=== PATIENT | male | born 1965 | race Caucasian/White ===

== ENCOUNTER 2024-08-11 20:35 | Inpatient (IN) | payer MEDICARE, MEDICAID ==
[2024-08-11 22:00] VITALS: BP 113/84; TEMP 97.6; O2SAT 96
[2024-08-11] MEDS ORDERED: ALBUTEROL FS 2.5 MG/0.5 ML VIAL.NEB NEB PRN (22:00)
[2024-08-11] MEDS ORDERED: hydrALAZINE HCL IV 20 MG VIAL IV PRN (22:00)
[2024-08-11] MEDS ORDERED: ONDANSETRON HCL/PF 4 MG/2 ML VIAL IVP PRN (22:00)
[2024-08-11 22:38] LABS: BASOPHILS # (AUTO) 0.1 K/uL (0.0-0.2); BASOPHILS % (AUTO) 0.6 % (0.0-2.0); EOSINOPHILS # (AUTO) 0.5 K/uL (0.0-0.7); EOSINOPHILS % (AUTO) 5.3 % (0.0-6.0); HEMATOCRIT 38 % (39-51); HEMOGLOBIN 12.7 g/dL (13.5-17.5); LYMPHOCYTES # (AUTO) 1.6 K/uL (0.8-4.8); LYMPHOCYTES % (AUTO) 16.9 % (20.0-44.0); MEAN CORPUSCULAR HEMOGLOBIN 33 PG (26.0-33.0); MEAN CORPUSCULAR HGB CONC 33 g/dl (31.0-36.0); MEAN CORPUSCULAR VOLUME 99 fL (80-96); MONOCYTES % (AUTO) 10.1 % (2.0-12.0); NEUTROPHILS # (AUTO) 6.4 K/uL (1.8-8.9); NEUTROPHILS % (AUTO) 67.1 % (43.0-81.0); PLATELET COUNT (AUTO) 224 K/uL (150-450); RED BLOOD CELL COUNT(AUTO) 3.86 MIL/uL (4.5-6.0); RED CELL DISTRIBUTION WIDTH 16.5 % (11.5-15.0); WHITE BLOOD COUNT (AUTO) 9.6 K/uL (4.3-11.0)
[2024-08-11] MEDS ORDERED: LEVE250T2 GT (22:46)
[2024-08-11] MEDS ORDERED: THIA50TA10 GT (22:46)
[2024-08-11] MEDS ORDERED: FAMO-131 PO (22:46)
[2024-08-11] MEDS ORDERED: NA P133E RC (22:46)
[2024-08-11] MEDS ORDERED: ONDA4TAB5 GT (22:46)
[2024-08-11] MEDS ORDERED: BACL5TAB GT (22:46)
[2024-08-11] MEDS ORDERED: CARV12.5 PO (22:46)
[2024-08-11] MEDS ORDERED: AMAN50SY GT (22:46)
[2024-08-11] MEDS ORDERED: ATOR40TA PO (22:46)
[2024-08-11] MEDS ORDERED: POLY17PO4 GT (22:46)
[2024-08-11] MEDS ORDERED: RIVA10TA GT (22:46)
[2024-08-11] MEDS ORDERED: MAGN400O21 GT (22:46)
[2024-08-11] MEDS ORDERED: ACET325C7 RC (22:46)
[2024-08-11] MEDS ORDERED: FURO-145 GT (22:46)
[2024-08-11 22:50] LABS: ALBUMIN 2.6 g/dL (3.4-5.0); BILIRUBIN,TOTAL 0.8 mg/dL (0.2-1.0); CALCIUM, SERUM 9.2 mg/dL (8.5-10.1); CREATININE 0.7 mg/dL (0.6-1.3); POTASSIUM 4.1 mmol/L (3.5-5.1); TOTAL PROTEIN, SERUM 7.5 g/dL (6.4-8.2)
[2024-08-11] MEDS ORDERED: ACETAMINOPHEN 650 MG/SUPP.RECT RC PRN (23:45)
[2024-08-12] VITALS: BP 113/84; TEMP 98.1; O2SAT 95
[2024-08-12] MEDS ORDERED: NA PHOS,M-B/NA PHOS,DI-BA 1 EA ENEMA RC PRN
[2024-08-12] MEDS ORDERED: IPRATROPIUM/ALBUTEROL INHALER IH SCH
[2024-08-12] MEDS ORDERED: MAGNESIUM HYDROXIDE 30 ML UDC GT PRN
[2024-08-12] MEDS: IPRATROPIUM NEB FS 0.5 MG/2.5 ML AMPUL.NEB NEB SCH (01:32)
[2024-08-12] MEDS: ALBUTEROL FS 2.5 MG/3 ML VIAL.NEB NEB SCH (01:33)
[2024-08-12 04:00] VITALS: BP 150/87; TEMP 97.7; O2SAT 96
[2024-08-12 05:36] LABS: ABG BASE EXCESS 5.1 mmol/L (-2.0-3.0); ABG PCO2 38.3 mmHg (35.0-48.0); ABG PH 7.491 (7.350-7.450); ABG PO2 92.7 mmHg (83.0-108.0); ABG TOTAL HEMOGLOBIN 13.4 G/dL (13.5-17.5); COHb 0.8 % (0.5-1.5); MetHb 0.2 % (0.0-1.5); PEEP,BG 5 cm H2O; SITE, ABG LEFT RADIAL; VT, ABG 500 mL
[2024-08-12 08:00] VITALS: BP 123/89; TEMP 98.8; O2SAT 100
[2024-08-12] MEDS: LEVETIRACETAM (250 MG) 250 MG TABLET GT SCH (08:23)
[2024-08-12] MEDS: DOCUSATE SODIUM LIQ 100 MG/10 ML UDC PO SCH (08:23)
[2024-08-12] MEDS: THIAMINE HCL 100 MG TABLET GT SCH (08:23)
[2024-08-12] MEDS: POLYETHYLENE GLYCOL 3350 17 GM POWD.PACK GT SCH (08:23)
[2024-08-12] MEDS: FAMOTIDINE (20 MG) 20 MG TABLET PO SCH (08:23)
[2024-08-12] MEDS: FUROSEMIDE 20 MG TABLET GT SCH (08:24)
[2024-08-12] MEDS: CARVEDILOL 12.5 MG TABLET PO SCH (08:45)
[2024-08-12] MEDS ORDERED: POLYETHYLENE GLYCOL 3350 17 GM POWD.PACK PO SCH (09:00)
[2024-08-12] MEDS ORDERED: AMANTADINE SUSP 50 MG/5 ML UDC GT SCH (09:00)
[2024-08-12] MEDS ORDERED: Z GUARD REMEDY 4 OZ OINT TP PRN (09:00)
[2024-08-12] MEDS: Z GUARD REMEDY 4 OZ OINT TP SCH (09:46)
[2024-08-12 10:24] LABS: MAGNESIUM 2.1 mg/dL (1.8-2.4); PHOSPHORUS 4.3 mg/dL (2.5-4.9)
[2024-08-12] MEDS: JEVITY 1.2 CAL 1,000 ML BOTTLE GT PRN (11:48)
[2024-08-12 12:00] VITALS: BP 118/76; TEMP 98.2; O2SAT 97
[2024-08-12 16:00] VITALS: BP 108/64; TEMP 99; O2SAT 97
[2024-08-12] MEDS: ATORVASTATIN 40 MG TABLET PO SCH (17:47)
[2024-08-12] MEDS: RIVAROXABAN 10 MG TABLET PO SCH (17:48)
[2024-08-12 20:00] VITALS: BP 108/73; TEMP 98.4; O2SAT 99
[2024-08-12] MEDS: BACLOFEN (10 MG) 10 MG TABLET GT SCH (21:01)
[2024-08-13] VITALS: BP_SYST 121; BP_SYST 130; BP_DIAS 59; BP_DIAS 94; TEMP 98; O2SAT 99
[2024-08-13 00:37] LABS: BASOPHILS # (AUTO) 0.1 K/uL (0.0-0.2); BASOPHILS % (AUTO) 1.3 % (0.0-2.0); EOSINOPHILS # (AUTO) 0.4 K/uL (0.0-0.7); EOSINOPHILS % (AUTO) 5.1 % (0.0-6.0); HEMATOCRIT 37 % (39-51); HEMOGLOBIN 12.2 g/dL (13.5-17.5); LYMPHOCYTES # (AUTO) 1.5 K/uL (0.8-4.8); LYMPHOCYTES % (AUTO) 17.9 % (20.0-44.0); MEAN CORPUSCULAR HEMOGLOBIN 32 PG (26.0-33.0); MEAN CORPUSCULAR HGB CONC 33 g/dl (31.0-36.0); MEAN CORPUSCULAR VOLUME 98 fL (80-96); MONOCYTES # (AUTO) 0.9 K/uL (0.1-1.30); MONOCYTES % (AUTO) 10.3 % (2.0-12.0); NEUTROPHILS # (AUTO) 5.5 K/uL (1.8-8.9); NEUTROPHILS % (AUTO) 65.4 % (43.0-81.0); PLATELET COUNT (AUTO) 214 K/uL (150-450); RED CELL DISTRIBUTION WIDTH 16.2 % (11.5-15.0); WHITE BLOOD COUNT (AUTO) 8.4 K/uL (4.3-11.0)
[2024-08-13 00:52] LABS: CALCIUM, SERUM 9.1 mg/dL (8.5-10.1); CREATININE 0.7 mg/dL (0.6-1.3); POTASSIUM 3.6 mmol/L (3.5-5.1)
[2024-08-13 00:54] LABS: ALBUMIN 2.6 g/dL (3.4-5.0); BILIRUBIN,TOTAL 0.9 mg/dL (0.2-1.0); TOTAL PROTEIN, SERUM 7.4 g/dL (6.4-8.2)
[2024-08-13 04:00] VITALS: BP 118/81; TEMP 97.9; O2SAT 98
[2024-08-13 08:00] VITALS: BP 106/77; TEMP 97.9; O2SAT 99
[2024-08-13 12:00] VITALS: BP 133/82; TEMP 98.9; O2SAT 97
[2024-08-13 16:00] VITALS: BP 120/83; TEMP 98.5; O2SAT 94
[2024-08-13 20:00] VITALS: BP 119/84; TEMP 98.2; O2SAT 95
[2024-08-13 22:22] LABS: BASOPHILS # (AUTO) 0.2 K/uL (0.0-0.2); BASOPHILS % (AUTO) 1.8 % (0.0-2.0); EOSINOPHILS # (AUTO) 0.4 K/uL (0.0-0.7); EOSINOPHILS % (AUTO) 3.3 % (0.0-6.0); HEMATOCRIT 38 % (39-51); HEMOGLOBIN 12.3 g/dL (13.5-17.5); LYMPHOCYTES # (AUTO) 1.3 K/uL (0.8-4.8); LYMPHOCYTES % (AUTO) 11.9 % (20.0-44.0); MEAN CORPUSCULAR HEMOGLOBIN 32 PG (26.0-33.0); MEAN CORPUSCULAR HGB CONC 32 g/dl (31.0-36.0); MEAN CORPUSCULAR VOLUME 98 fL (80-96); MONOCYTES # (AUTO) 0.9 K/uL (0.1-1.30); MONOCYTES % (AUTO) 7.7 % (2.0-12.0); NEUTROPHILS # (AUTO) 8.3 K/uL (1.8-8.9); NEUTROPHILS % (AUTO) 75.3 % (43.0-81.0); PLATELET COUNT (AUTO) 202 K/uL (150-450); RED BLOOD CELL COUNT(AUTO) 3.89 MIL/uL (4.5-6.0); WHITE BLOOD COUNT (AUTO) 11.1 K/uL (4.3-11.0)
[2024-08-13 22:30] LABS: CALCIUM, SERUM 9.1 mg/dL (8.5-10.1); CREATININE 0.8 mg/dL (0.6-1.3); POTASSIUM 3.6 mmol/L (3.5-5.1)
[2024-08-13 22:35] LABS: ALBUMIN 2.6 g/dL (3.4-5.0); BILIRUBIN,TOTAL 0.7 mg/dL (0.2-1.0); TOTAL PROTEIN, SERUM 7.3 g/dL (6.4-8.2)
[2024-08-14] VITALS: BP 118/83; TEMP 98.9; O2SAT 98
[2024-08-14 04:00] VITALS: BP 124/75; TEMP 98; O2SAT 98
[2024-08-14 08:10] VITALS: BP 116/78; TEMP 98; O2SAT 94
[2024-08-14] MEDS: ACETAMINOPHEN 325 MG TABLET PO PRN (10:51)
[2024-08-14 12:05] VITALS: BP 115/80; TEMP 99.1; O2SAT 95
[2024-08-14] MEDS: AMANTADINE SUSP 50 MG/5 ML UDC GT SCH (12:09)
[2024-08-14 15:00] LABS: BASOPHILS # (AUTO) 0.1 K/uL (0.0-0.2); EOSINOPHILS # (AUTO) 0.4 K/uL (0.0-0.7); EOSINOPHILS % (AUTO) 4.1 % (0.0-6.0); HEMATOCRIT 38 % (39-51); HEMOGLOBIN 12.5 g/dL (13.5-17.5); LYMPHOCYTES # (AUTO) 1.7 K/uL (0.8-4.8); LYMPHOCYTES % (AUTO) 17.9 % (20.0-44.0); MEAN CORPUSCULAR HEMOGLOBIN 33 PG (26.0-33.0); MEAN CORPUSCULAR HGB CONC 33 g/dl (31.0-36.0); MEAN CORPUSCULAR VOLUME 99 fL (80-96); MONOCYTES # (AUTO) 0.9 K/uL (0.1-1.30); MONOCYTES % (AUTO) 9.4 % (2.0-12.0); NEUTROPHILS # (AUTO) 6.6 K/uL (1.8-8.9); NEUTROPHILS % (AUTO) 67.6 % (43.0-81.0); PLATELET COUNT (AUTO) 196 K/uL (150-450); RED BLOOD CELL COUNT(AUTO) 3.81 MIL/uL (4.5-6.0); RED CELL DISTRIBUTION WIDTH 16.3 % (11.5-15.0); WHITE BLOOD COUNT (AUTO) 9.7 K/uL (4.3-11.0)
[2024-08-14 15:18] LABS: CALCIUM, SERUM 9.1 mg/dL (8.5-10.1); CREATININE 0.6 mg/dL (0.6-1.3); POTASSIUM 3.6 mmol/L (3.5-5.1)
[2024-08-14 16:00] VITALS: BP 124/79; TEMP 98.8; O2SAT 99
[2024-08-14 20:00] VITALS: BP 112/83; TEMP 97.5; O2SAT 97
[2024-08-14 21:47] LABS: BASOPHILS # (AUTO) 0.1 K/uL (0.0-0.2); BASOPHILS % (AUTO) 1.1 % (0.0-2.0); EOSINOPHILS # (AUTO) 0.4 K/uL (0.0-0.7); EOSINOPHILS % (AUTO) 3.9 % (0.0-6.0); HEMATOCRIT 39 % (39-51); HEMOGLOBIN 12.4 g/dL (13.5-17.5); LYMPHOCYTES # (AUTO) 1.6 K/uL (0.8-4.8); LYMPHOCYTES % (AUTO) 17.4 % (20.0-44.0); MEAN CORPUSCULAR HEMOGLOBIN 32 PG (26.0-33.0); MEAN CORPUSCULAR HGB CONC 32 g/dl (31.0-36.0); MEAN CORPUSCULAR VOLUME 99 fL (80-96); MONOCYTES # (AUTO) 0.7 K/uL (0.1-1.30); MONOCYTES % (AUTO) 7.8 % (2.0-12.0); NEUTROPHILS # (AUTO) 6.6 K/uL (1.8-8.9); NEUTROPHILS % (AUTO) 69.8 % (43.0-81.0); PLATELET COUNT (AUTO) 197 K/uL (150-450); RED BLOOD CELL COUNT(AUTO) 3.91 MIL/uL (4.5-6.0); WHITE BLOOD COUNT (AUTO) 9.4 K/uL (4.3-11.0)
[2024-08-14 21:49] LABS: CALCIUM, SERUM 9.3 mg/dL (8.5-10.1); CREATININE 0.6 mg/dL (0.6-1.3); POTASSIUM 3.7 mmol/L (3.5-5.1)
[2024-08-14 21:56] LABS: ALBUMIN 2.5 g/dL (3.4-5.0); BILIRUBIN,TOTAL 0.7 mg/dL (0.2-1.0); TOTAL PROTEIN, SERUM 7.2 g/dL (6.4-8.2)
[2024-08-15] VITALS (7 sets, daily range): BP systolic 115–138; BP diastolic 57–84; TEMP 97.5–98.8; O2SAT 97–100
[2024-08-15 21:43] LABS: BASOPHILS # (AUTO) 0.1 K/uL (0.0-0.2); BASOPHILS % (AUTO) 1.3 % (0.0-2.0); EOSINOPHILS # (AUTO) 0.5 K/uL (0.0-0.7); EOSINOPHILS % (AUTO) 4.6 % (0.0-6.0); HEMATOCRIT 39 % (39-51); HEMOGLOBIN 12.6 g/dL (13.5-17.5); LYMPHOCYTES # (AUTO) 1.9 K/uL (0.8-4.8); MEAN CORPUSCULAR HEMOGLOBIN 32 PG (26.0-33.0); MEAN CORPUSCULAR HGB CONC 32 g/dl (31.0-36.0); MEAN CORPUSCULAR VOLUME 98 fL (80-96); MONOCYTES # (AUTO) 0.9 K/uL (0.1-1.30); MONOCYTES % (AUTO) 8.6 % (2.0-12.0); NEUTROPHILS # (AUTO) 6.6 K/uL (1.8-8.9); NEUTROPHILS % (AUTO) 66.5 % (43.0-81.0); PLATELET COUNT (AUTO) 202 K/uL (150-450); RED BLOOD CELL COUNT(AUTO) 3.97 MIL/uL (4.5-6.0); RED CELL DISTRIBUTION WIDTH 15.6 % (11.5-15.0); WHITE BLOOD COUNT (AUTO) 9.9 K/uL (4.3-11.0)
[2024-08-15 21:55] LABS: CALCIUM, SERUM 8.9 mg/dL (8.5-10.1); CREATININE 0.7 mg/dL (0.6-1.3); POTASSIUM 4.2 mmol/L (3.5-5.1)
[2024-08-15 22:00] LABS: ALBUMIN 2.5 g/dL (3.4-5.0); BILIRUBIN,TOTAL 0.8 mg/dL (0.2-1.0); TOTAL PROTEIN, SERUM 7.1 g/dL (6.4-8.2)
[2024-08-16] VITALS: BP 124/84; TEMP 98.4; O2SAT 97
[2024-08-16 04:00] VITALS: BP 131/79; TEMP 97.3; O2SAT 100
[2024-08-16 08:00] VITALS: BP 108/73; TEMP 98.4; O2SAT 100
[2024-08-16] MEDS: MORPHINE SULFATE INJ 2 MG/ML DISP.SYRIN IV PRN (10:33)
[2024-08-16 12:00] VITALS: BP 91/74; TEMP 97.8; O2SAT 100
[2024-08-16 16:00] VITALS: BP 105/66; TEMP 97.9; O2SAT 99
[2024-08-16] MEDS: PROSOURCE / PROSTAT (PYXIS) 30 ML UDC GT SCH (16:52)
[2024-08-16 20:00] VITALS: BP 93/65; TEMP 98.1; O2SAT 97
[2024-08-17] VITALS (7 sets, daily range): BP systolic 100–129; BP diastolic 61–88; TEMP 97.3–99.7; O2SAT 97–100
[2024-08-17 00:54] LABS: BASOPHILS # (AUTO) 0.1 K/uL (0.0-0.2); BASOPHILS % (AUTO) 0.6 % (0.0-2.0); EOSINOPHILS # (AUTO) 0.5 K/uL (0.0-0.7); EOSINOPHILS % (AUTO) 4.9 % (0.0-6.0); HEMATOCRIT 38 % (39-51); HEMOGLOBIN 12.3 g/dL (13.5-17.5); LYMPHOCYTES # (AUTO) 1.6 K/uL (0.8-4.8); LYMPHOCYTES % (AUTO) 16.5 % (20.0-44.0); MEAN CORPUSCULAR HEMOGLOBIN 32 PG (26.0-33.0); MEAN CORPUSCULAR HGB CONC 33 g/dl (31.0-36.0); MEAN CORPUSCULAR VOLUME 98 fL (80-96); MONOCYTES # (AUTO) 0.8 K/uL (0.1-1.30); MONOCYTES % (AUTO) 8.4 % (2.0-12.0); NEUTROPHILS # (AUTO) 6.6 K/uL (1.8-8.9); NEUTROPHILS % (AUTO) 69.6 % (43.0-81.0); PLATELET COUNT (AUTO) 203 K/uL (150-450); RED BLOOD CELL COUNT(AUTO) 3.83 MIL/uL (4.5-6.0); RED CELL DISTRIBUTION WIDTH 15.7 % (11.5-15.0); WHITE BLOOD COUNT (AUTO) 9.5 K/uL (4.3-11.0)
[2024-08-17 01:07] LABS: ALBUMIN 2.5 g/dL (3.4-5.0); BILIRUBIN,TOTAL 0.7 mg/dL (0.2-1.0); CREATININE 0.6 mg/dL (0.6-1.3); POTASSIUM 3.7 mmol/L (3.5-5.1); TOTAL PROTEIN, SERUM 7.1 g/dL (6.4-8.2)
[2024-08-17 21:09] LABS: BASOPHILS # (AUTO) 0.1 K/uL (0.0-0.2); BASOPHILS % (AUTO) 0.8 % (0.0-2.0); EOSINOPHILS # (AUTO) 0.4 K/uL (0.0-0.7); EOSINOPHILS % (AUTO) 3.6 % (0.0-6.0); HEMATOCRIT 44 % (39-51); HEMOGLOBIN 14.3 g/dL (13.5-17.5); LYMPHOCYTES # (AUTO) 2.2 K/uL (0.8-4.8); LYMPHOCYTES % (AUTO) 20.7 % (20.0-44.0); MEAN CORPUSCULAR HEMOGLOBIN 33 PG (26.0-33.0); MEAN CORPUSCULAR HGB CONC 33 g/dl (31.0-36.0); MEAN CORPUSCULAR VOLUME 101 fL (80-96); MONOCYTES # (AUTO) 1.5 K/uL (0.1-1.30); NEUTROPHILS # (AUTO) 6.5 K/uL (1.8-8.9); NEUTROPHILS % (AUTO) 60.9 % (43.0-81.0); PLATELET COUNT (AUTO) 178 K/uL (150-450); RED BLOOD CELL COUNT(AUTO) 4.33 MIL/uL (4.5-6.0); RED CELL DISTRIBUTION WIDTH 16.2 % (11.5-15.0); WHITE BLOOD COUNT (AUTO) 10.7 K/uL (4.3-11.0)
[2024-08-17 21:16] LABS: CALCIUM, SERUM 9.2 mg/dL (8.5-10.1); CREATININE 0.7 mg/dL (0.6-1.3); POTASSIUM 4.1 mmol/L (3.5-5.1)
[2024-08-17 21:21] LABS: ALBUMIN 2.7 g/dL (3.4-5.0); BILIRUBIN,TOTAL 0.9 mg/dL (0.2-1.0); TOTAL PROTEIN, SERUM 7.6 g/dL (6.4-8.2)
[2024-08-18] VITALS: BP 125/76; TEMP 98.1; O2SAT 98
[2024-08-18 04:00] VITALS: BP 128/88; TEMP 98; O2SAT 97
[2024-08-18 07:55] LABS: CALCIUM, SERUM 9.4 mg/dL (8.5-10.1); CREATININE 0.6 mg/dL (0.6-1.3); POTASSIUM 3.9 mmol/L (3.5-5.1)
[2024-08-18 08:00] VITALS: BP 139/94; TEMP 97.9; O2SAT 99
[2024-08-18 08:57] LABS: BASOPHILS # (AUTO) 0.1 K/uL (0.0-0.2); BASOPHILS % (AUTO) 0.5 % (0.0-2.0); EOSINOPHILS # (AUTO) 0.3 K/uL (0.0-0.7); HEMATOCRIT 39 % (39-51); HEMOGLOBIN 12.6 g/dL (13.5-17.5); LYMPHOCYTES # (AUTO) 1.8 K/uL (0.8-4.8); LYMPHOCYTES % (AUTO) 16.3 % (20.0-44.0); MEAN CORPUSCULAR HEMOGLOBIN 32 PG (26.0-33.0); MEAN CORPUSCULAR HGB CONC 33 g/dl (31.0-36.0); MEAN CORPUSCULAR VOLUME 98 fL (80-96); MONOCYTES # (AUTO) 1.3 K/uL (0.1-1.30); MONOCYTES % (AUTO) 11.6 % (2.0-12.0); NEUTROPHILS # (AUTO) 7.5 K/uL (1.8-8.9); NEUTROPHILS % (AUTO) 68.6 % (43.0-81.0); PLATELET COUNT (AUTO) 207 K/uL (150-450); RED BLOOD CELL COUNT(AUTO) 3.96 MIL/uL (4.5-6.0); RED CELL DISTRIBUTION WIDTH 15.8 % (11.5-15.0)
[2024-08-18 12:00] VITALS: BP 159/108; TEMP 98.2; O2SAT 99
[2024-08-18 16:00] VITALS: BP 125/83; TEMP 97.7; O2SAT 98
[2024-08-18 21:32] VITALS: BP 151/99; TEMP 99.8; O2SAT 99
[2024-08-18 22:21] LABS: BASOPHILS # (AUTO) 0.1 K/uL (0.0-0.2); BASOPHILS % (AUTO) 0.6 % (0.0-2.0); EOSINOPHILS # (AUTO) 0.3 K/uL (0.0-0.7); HEMATOCRIT 39 % (39-51); HEMOGLOBIN 12.9 g/dL (13.5-17.5); LYMPHOCYTES # (AUTO) 1.3 K/uL (0.8-4.8); LYMPHOCYTES % (AUTO) 11.6 % (20.0-44.0); MEAN CORPUSCULAR HEMOGLOBIN 33 PG (26.0-33.0); MEAN CORPUSCULAR HGB CONC 33 g/dl (31.0-36.0); MEAN CORPUSCULAR VOLUME 97 fL (80-96); MONOCYTES % (AUTO) 9.2 % (2.0-12.0); NEUTROPHILS # (AUTO) 8.4 K/uL (1.8-8.9); NEUTROPHILS % (AUTO) 75.6 % (43.0-81.0); PLATELET COUNT (AUTO) 193 K/uL (150-450); RED BLOOD CELL COUNT(AUTO) 3.97 MIL/uL (4.5-6.0); RED CELL DISTRIBUTION WIDTH 15.6 % (11.5-15.0); WHITE BLOOD COUNT (AUTO) 11.1 K/uL (4.3-11.0)
[2024-08-18 22:30] LABS: CALCIUM, SERUM 9.1 mg/dL (8.5-10.1); CREATININE 0.7 mg/dL (0.6-1.3); POTASSIUM 3.7 mmol/L (3.5-5.1)
[2024-08-18 22:35] LABS: ALBUMIN 2.6 g/dL (3.4-5.0); BILIRUBIN,TOTAL 0.9 mg/dL (0.2-1.0); TOTAL PROTEIN, SERUM 7.4 g/dL (6.4-8.2)
[2024-08-19 00:13] VITALS: BP 99/65; TEMP 99.5; O2SAT 99
[2024-08-19 04:42] VITALS: BP 133/77; TEMP 99; O2SAT 99
[2024-08-19 08:00] VITALS: BP 110/71; TEMP 99.3; O2SAT 99
[2024-08-19 12:00] VITALS: BP 131/75; TEMP 99.5; O2SAT 98
[2024-08-19 16:00] VITALS: BP 105/76; TEMP 98.4; O2SAT 99
[2024-08-19] MEDS ORDERED: ALBUTEROL FS 2.5 MG/0.5 ML VIAL.NEB NEB PRN (17:36)
[2024-08-19 20:00] VITALS: BP 108/80; TEMP 98.8; O2SAT 100
[2024-08-19] MEDS: DOCUSATE SODIUM LIQ 100 MG/10 ML UDC PO SCH (20:19)
[2024-08-19] MEDS: LEVETIRACETAM (250 MG) 250 MG TABLET GT SCH (20:20)
[2024-08-19] MEDS: FUROSEMIDE 20 MG TABLET GT SCH (20:20)
[2024-08-19] MEDS: FAMOTIDINE (20 MG) 20 MG TABLET PO SCH (20:20)
[2024-08-19] MEDS: CARVEDILOL 12.5 MG TABLET PO SCH (20:26)
[2024-08-19] MEDS: PROSOURCE / PROSTAT (PYXIS) 30 ML UDC GT SCH (21:10)
[2024-08-20] VITALS: BP 101/72; TEMP 98.4; O2SAT 97
[2024-08-20 04:00] VITALS: BP 115/78; TEMP 98.4; O2SAT 97
[2024-08-20 08:00] VITALS: BP 115/79; TEMP 98.6; O2SAT 97
[2024-08-20] MEDS ORDERED: ALBU2.5V13 NEB (10:53)
[2024-08-20] MEDS ORDERED: BACL10TA GT (10:53)
[2024-08-20] MEDS ORDERED: ATOR40TA PO (10:53)
[2024-08-20] MEDS ORDERED: POLY17PO29 GT (10:53)
[2024-08-20] MEDS ORDERED: ACET325T53 PO (10:53)
[2024-08-20] MEDS ORDERED: FURO20TA4 GT (10:53)
[2024-08-20] MEDS ORDERED: AMAN50SY GT (10:53)
[2024-08-20] MEDS ORDERED: DOCU50LI PO (10:53)
[2024-08-20] MEDS ORDERED: LACT-209 GT (10:53)
[2024-08-20] MEDS ORDERED: Prosource GT (10:53)
[2024-08-20] MEDS ORDERED: FAMO20TA80 PO (10:53)
[2024-08-20] MEDS ORDERED: CARV12.52 PO (10:53)
[2024-08-20] MEDS ORDERED: ACET650S11 RC (10:53)
[2024-08-20] MEDS ORDERED: RIVA10TA PO (10:53)
[2024-08-20] MEDS ORDERED: IPRA0.2S9 NEB (10:53)
[2024-08-20] MEDS ORDERED: ALBUT2 NEB (10:53)
[2024-08-20] MEDS ORDERED: Thiamine HCL GT (10:53)
[2024-08-20] MEDS ORDERED: LEVE250T2 GT (10:53)
[2024-08-20 12:00] VITALS: BP 120/75; TEMP 97.3; O2SAT 97
[2024-08-20 13:37] LABS: CALCIUM, SERUM 9.3 mg/dL (8.5-10.1); CREATININE 0.6 mg/dL (0.6-1.3); POTASSIUM 4.3 mmol/L (3.5-5.1)
== END 2024-08-20 15:30 | DRG 207 ==
LOC: TELE-TD 20:35 → TELE1 08-14 09:19
PROVIDERS: ADMIT Internal Medicine; ATTEND Nurse Practitioner Acute Care
PROC: 5A1955Z Respiratory Ventilation, Greater than 96 Consecutive Hours (ICD-10-PCS; principal; 2024-08-11)
DX: J96.21 Acute and chronic respiratory failure with hypoxia (principal); R53.2 Functional quadriplegia; Z99.11 Dependence on respirator [ventilator] status; E44.0 Moderate protein-calorie malnutrition; J98.11 Atelectasis; L97.319 Non-pressure chronic ulcer of right ankle with unspecified severity; I48.91 Unspecified atrial fibrillation; B35.3 Tinea pedis; L85.3 Xerosis cutis; Z86.73 Personal history of transient ischemic attack (TIA), and cerebral infarction without residual deficits; D64.9 Anemia, unspecified; E11.9 Type 2 diabetes mellitus without complications; E66.01 Morbid (severe) obesity due to excess calories; E78.5 Hyperlipidemia, unspecified; E88.09 Other disorders of plasma-protein metabolism, not elsewhere classified; G47.33 Obstructive sleep apnea (adult) (pediatric); I10 Essential (primary) hypertension; R13.10 Dysphagia, unspecified; Z79.01 Long term (current) use of anticoagulants; Z93.0 Tracheostomy status; Z93.1 Gastrostomy status; Z86.69 Personal history of other diseases of the nervous system and sense organs
CPT/HCPCS: 31720; 36415; 36600; 71045-TC; 80048-TC; 80053-TC; 82962-TC; 83735-TC; 84100-TC; 85025-TC; 87081-TC; 94002-TC; 94003-TC; 94760-TC; 94762-TC; 94799-TC; 97530-TC; A4223; A4623; A6403; A7526; G0378; J0360; J2270